=== PATIENT | female | born 1980 | race Caucasian/White ===

== ENCOUNTER 2017-01-27 12:29 | Emergency (ER) | payer OTHER ==
[~2017-01-27] VITALS: Ht 165.1 cm; Wt 96.4 kg
[2017-01-27 12:34] VITALS: TEMP 37; Ht 165.1 cm; Wt 96.4 kg
[2017-01-27] MEDS ORDERED: SODIUM CHLORIDE 0.9% 1000ML 1,000 ML IV STA (13:05)
[2017-01-27] MEDS ORDERED: ONDANSETRON INJ 2 MG/ML 2 ML VIAL IV STA (13:06)
--- NOTE | 2017-01-27 13:19 | DIAGNOSTIC IMAGING REPORT ---
CHEST ONE VIEW PORTABLE CLINICAL HISTORY: Evaluate Fever/Sepsis cough COMPARISON STUDY: No previous studies for comparison. FINDINGS: The bones soft tissues and hemidiaphragms are normal. The cardiomediastinal silhouette is normal. The lungs are clear. The pulmonary vasculature is normal. IMPRESSION: Negative chest. Electronically signed by: Eran Nassar M.D. 01/27/2017 1:18 PM Dictated Date/Time: 01/27/2017 1:18 PM
[2017-01-27 13:33] LABS: MANUAL MICROSCOPIC REQUIRED? YES; URINE APPEARANCE SL CLOUDY (CLEAR); URINE COLOR AMBER; URINE NITRITE NEG (NEG); URINE PH 6.5 (4.5-7.5); UROBILINOGEN POS (NEG)
[2017-01-27 13:39] LABS: REVIEW REQ? NO; URINE BILIRUBIN 2+ (NEG)
[2017-01-27 13:40] LABS: URINE RBC >30 /hpf (0-4)
[2017-01-27 13:41] LABS: URINE BACTERIA 1+ (NEG)
[2017-01-27 13:42] LABS: ZZUR CULT IF INDIC CLEAN CATCH YES
[2017-01-27 13:52] LABS: BUN/CREATININE RATIO 10.3 (10-20); CALCIUM 8.4 mg/dl (8.5-10.1); CREATININE 0.81 mg/dl (0.60-1.20); POTASSIUM 2.9 mmol/L (3.5-5.1)
[2017-01-27 14:00] LABS: BASO % 0.5 %; BASO ABS # 0.02 K/uL (0-0.2); COMPLETE YES; EOS % 0.2 %; HEMATOCRIT 34.9 % (37-47); IG% 0.9 %; LYMPH % 30.4 %; LYMPH ABS # 1.32 K/uL (1.2-3.4); MEAN CELL VOLUME 82.9 fL (80-100); MEAN CORPUSCULAR HEMOGLOBIN 29.5 pg (25-34); MEAN CORPUSCULAR HGB CONC 35.5 g/dl (32-36); MONO % 10.1 %; NEUT % 57.9 %; PLATELET COUNT 71 K/uL (130-400); PLT ESTIMATE DECREASED; RED BLOOD COUNT 4.21 M/uL (4.2-5.4); WHITE BLOOD COUNT 4.34 K/uL (4.8-10.8)
[2017-01-27] MEDS ORDERED: CEFTRIAXONE SOD INJ 1 GM ADDVIAL IV STA (14:31)
[2017-01-27] MEDS ORDERED: NITROFURANTOIN MONOHYDRATE 100 MG CAP PO STA (14:31)
[2017-01-27] MEDS ORDERED: POTASSIUM CHLORIDE 10 MEQ TABCR PO STA (14:32)
[2017-01-27] MEDS ORDERED: NITR-5 PO (14:37)
--- NOTE | 2017-01-27 14:37 | EMERGENCY ROOM VISIT NOTE ---
History Report prepared by Viktor: Ventura Downey Under the Supervision of: Dr. Yordy Rai D.O. First contact with patient: 12:57 Chief Complaint: ILLNESS Stated Complaint: "SICK" History of Present Illness The patient is a 36 year old female who presents to the Emergency Room with complaints of constant flu symptoms beginning a week ago. The patient states that she went to the [facility] emergency room where she was diagnosed with the flu and was given a bag of fluids. She complains of a subjective fever, intermittent vomiting, chills, nausea, loss of appetite, dehydration, body pains , dark and odorous urine, occasional dysuria, and a productive cough. She denies rhinorrhea The patient notes that she just had a stress incontinent surgery 2 months ago where she had her bladder fixed. She states she has not taken pain medications since last evening. The patient reports she stopped taking pain medication because she could not eat, when she ate she would vomit the food back up shortly after eating it. Source of History: patient Onset: week ago Position: other (global) Quality: other (flu-like) Timing: constant Associated Symptoms: + chills, + cough, + fevers, + nausea, + urinary symptoms, + vomiting Note: Associated symptoms loss of appetite, dehydration, and body pains. She denies rhinorrhea Review of Systems See HPI for pertinent positives & negatives. A total of 10 systems reviewed and were otherwise negative. Family History No pertinent family history stated. Social History Smoking Status: Never Smoker Current/Historical Medications Scheduled Nitrofurantoin Monohyd Macrocr (Macrobid), 100 MG PO BID Ondasetron Odt (Zofran Odt), 4 MG SL Q6H Allergies Coded Allergies: Bee Venom (Unverified Allergy, Severe, SWELLING, , 01/27/17) Dicloxacillin (Unverified Allergy, Severe, CHEST PAIN, 01/27/17) Physical Exam Vital Signs Date Time Temp Pulse Resp B/P Pulse Ox O2 Delivery O2 Flow Rate FiO2 01/27/17 12:34 37.0 101 18 122/73 97 Room Air Physical Exam CONSTITUTIONAL/VITAL SIGNS: Reviewed / noted above. GENERAL: Non-toxic in appearance. INTEGUMENTARY: Warm, dry, and [place]. HEAD: Normocephalic. EYES: without scleral icterus or trauma. ENT/OROPHARYNX: clear and moist. LYMPHADENOPATHY/NECK: Is supple without lymphadenopathy or meningismus. RESPIRATORY: Lungs clear and equal. CARDIOVASCULAR: Regular rate and rhythm. GI/ABDOMEN: Soft and nontender. No organomegaly or pulsatile mass. No rebound or guarding. Normal bowel sounds. EXTREMITIES: Warm and well perfused. BACK: No CVA tenderness. NEUROLOGICAL: Intact without focal deficits. PSYCHIATRIC: normal affect. MUSCULOSKELETAL: Normally developed with good muscle tone. Medical Decision & Procedures ER Provider Diagnostic Interpretation: X ray results and stated below per my interpretation and radiology interpretation. CHEST ONE VIEW PORTABLE CLINICAL HISTORY: Evaluate Fever/Sepsis cough COMPARISON STUDY: No previous studies for comparison. FINDINGS: The bones soft tissues and hemidiaphragms are normal. The cardiomediastinal silhouette is normal. The lungs are clear. The pulmonary vasculature is normal. IMPRESSION: Negative chest. Electronically signed by: Eran Nassar M.D. 01/27/2017 1:18 PM Dictated Date/Time: 01/27/2017 1:18 PM Laboratory Results 01/27/17 13:05 Red Blood Count 4.21, Mean Corpuscular Volume 82.9, Mean Corpuscular Hemoglobin 29.5, Mean Corpuscular Hemoglobin Concent 35.5, Mean Platelet Volume 13.0, Neutrophils (%) (Auto) 57.9, Lymphocytes (%) (Auto) 30.4, Monocytes (%) (Auto) 10.1, Eosinophils (%) (Auto) 0.2, Basophils (%) (Auto) 0.5, Neutrophils # (Auto ) 2.51, Lymphocytes # (Auto) 1.32, Monocytes # (Auto) 0.44, Eosinophils # (Auto ) 0.01, Basophils # (Auto) 0.02 01/27/17 13:05 Test 01/27/17 13:00 01/27/17 13:05 Urine Color GRAY Urine Appearance SL CLOUDY (CLEAR) Urine pH 6.5 (4.5-7.5) Urine Specific [place] 1.010 (1.000-1.030) Urine Protein 1+ (NEG) Urine Glucose (UA) NEG (NEG) Urine Ketones NEG (NEG) Urine Occult Blood 3+ (NEG) Urine Nitrite NEG (NEG) Urine Bilirubin 2+ (NEG) Urine Urobilinogen POS (NEG) Urine Leukocyte Esterase NEG (NEG) Urine RBC >30 /hpf (0-4) Urine WBC 5-10 /hpf (0-5) Urine Epithelial Cells >30 /lpf (0-5) Urine Bacteria 1+ (NEG) Urine Test NEG (NEG) White Blood Count 4.34 K/uL (4.8-10.8) Red Blood Count 4.21 M/uL (4.2-5.4) Hemoglobin 12.4 g/dL (12.0-16.0) Hematocrit 34.9 % (37-47) Mean Corpuscular Volume 82.9 fL (80-100) Mean Corpuscular Hemoglobin 29.5 pg (25-34) Mean Corpuscular Hemoglobin Concent 35.5 g/dl (32-36) Platelet Count 71 K/uL (130-400) Mean Platelet Volume 13.0 fL (7.4-10.4) Neutrophils (%) (Auto) 57.9 % Lymphocytes (%) (Auto) 30.4 % Monocytes (%) (Auto) 10.1 % Eosinophils (%) (Auto) 0.2 % Basophils (%) (Auto) 0.5 % Neutrophils # (Auto) 2.51 K/uL (1.4-6.5) Lymphocytes # (Auto) 1.32 K/uL (1.2-3.4) Monocytes # (Auto) 0.44 K/uL (0.11-0.59) Eosinophils # (Auto) 0.01 K/uL (0-0.5) Basophils # (Auto) 0.02 K/uL (0-0.2) RDW Standard Deviation 41.0 fL (36.4-46.3) RDW Coefficient of Variation 13.4 % (11.5-14.5) Immature Granulocyte % (Auto) 0.9 % Immature Granulocyte # (Auto) 0.04 K/uL (0.00-0.02) Platelet Estimate DECREASED Anion Gap 9.0 mmol/L (3-11) Est Creatinine Clear Calc Drug Dose 112.4 ml/min Estimated GFR () 109.8 Estimated GFR (Non- 94.8 BUN/Creatinine Ratio 10.3 (10-20) Calcium Level 8.4 mg/dl (8.5-10.1) Laboratory results as stated above per my review. Medications Administered Medications (Trade) Dose Ordered Sig/Nilay Route Start Time Stop Time Status Last Admin Dose Admin Sodium Chloride (Nss 1000ml) 1,000 ml @ 999 mls/hr Q1H1M STAT IV 01/27/17 13:05 01/27/17 14:05 DC 01/27/17 13:13 999 MLS/HR Ondansetron HCl (Zofran Inj) 4 mg NOW STAT IV 01/27/17 13:06 01/27/17 13:07 DC 01/27/17 13:28 4 MG ED Course 1302: Previous medical records were reviewed. The patient was evaluated in room A04B. A complete history and physical examination was performed. 1305: Ordered Sodium Chloride 1000 ml @ 999 mls/hr IV 1306: Ordered Zofran Inj 4mg IV 1431: Ordered Macrobid Cap 100 mg PO, Rocephin Inj 1 gm IV 1432: Ordered 40 meq PO 1438: On reevaluation, the patient is doing better. I discussed the results and findings with the patient. She verbalized agreement of the treatment plan. She was discharged home. Medical Decision Differential includes viral illness, influenza, streptococcal pharyngitis, meningitis, pneumonia, sinusitis, UTI, pyelonephritis, otitis media. This is a 36-year-old female who presents to the ED with a chief complaint of subjective fevers and chills as well as some nausea and vomiting on occasion. She states that she's been feeling ill for about a week. She reports some body aches as well as feeling dehydrated. She states that her urine has been somewhat dark. She had some stress incontinence surgery back in November. Her vital signs are stable. She is afebrile. Her physical exam was relatively unremarkable. A chest x-ray did not show acute disease. CBC is normal. Potassium was 2.9. test is negative. Urine suggest infection. Cultures been sent. The patient was treated with IV fluids, IV Rocephin, IV Zofran, by mouth Macrobid and by mouth potassium. She was felt to be stable for discharge and outpatient follow-up. Prescription for Zofran and Macrobid given. Impression Primary Impression: UTI (urinary tract infection) Additional Impression: Hypokalemia Scribe Attestation The scribe's documentation has been prepared under my direction and personally reviewed by me in its entirety. I confirm that the note above accurately reflects all work, treatment, procedures, and medical decision making performed by me. Departure Information Dispostion Home / Self-Care Prescriptions Ondasetron Odt (ZOFRAN ODT) 4 Mg Tab 4 MG SL Q6H for Nausea, #10 TAB Prov: Yordy Rai D.O. 01/27/17 Nitrofurantoin Monohyd Macrocr (Macrobid) 100 Mg Cap 100 MG PO BID, #14 CAP Prov: Yordy Rai D.O. 01/27/17 Referrals No Doctor, Assigned (PCP) Patient Instructions [facility], UTI Additional Instructions Macrobid as prescribed. Follow-up with your doctor for recheck later this week. Return for severe worsening or new concerns. Problem Qualifiers
[2017-01-27] MEDS ORDERED: ONDA4TAB10 SL (14:40)
[2017-01-27 15:29] VITALS: BP 117/65; PULSE 83; O2SAT 99
== END 2017-01-27 15:32 | disposition home or self-care (01) ==
LOC: C.EDB 12:31 → C.EDA 15:32
DX: N39.0 Urinary tract infection, site not specified (principal); E87.6 Hypokalemia